=== PATIENT | male | born 1990 ===

== ENCOUNTER 2018-01-05 23:22 | Emergency (ER) | payer MEDICAID ==
[~2018-01-05] VITALS: Ht 170.2 cm; Wt 86.2 kg
[~2018-01-05 23:22] MED LIST: Ciprodex Otic7.5 ML LEFTEAR
== END 2018-01-06 01:35 | disposition home or self-care (01) ==
LOC: ER 23:22
DX: S81.811A Laceration without foreign body, right lower leg, initial encounter (principal); Z88.0 Allergy status to penicillin; Z87.891 Personal history of nicotine dependence; W22.8XXA Striking against or struck by other objects, initial encounter
CPT/HCPCS: 12002; 90471; 90714; 99283